=== PATIENT | male | born 1970 | race Caucasian/White ===

== ENCOUNTER 2022-03-18 05:41 | Emergency (ER) | payer OTHER ==
[2022-03-18 05:47] VITALS: O2SAT 96
[2022-03-18 06:04] VITALS: BP 154/99; PULSE 69
--- NOTE | 2022-03-18 06:12 | ERPHSYRPT ---
- History of Present Illness Time Seen by Provider: 03/18/22 06:07 Source: patient Exam Limitations: no limitations Patient Subjective Stated Complaint: after running, rt leg soreness and redness Triage Nursing Assessment: pt ran 3 miles on Thursday and rt leg became sore. Thursday ran 2 miles and rt leg is still sore, tender and noticed some redness to rt lower ext. Pt thinks it's slightly more swollen than the left lower leg. Good pedal pulses present. Pt states, "it feels like a pulled muscle and sore like a bruise". Physician History: Patient is a 51-year-old white male who was recently with improvement in the weather started to run again he has run 3 miles Thursday and 2 miles yesterday and has developed some discomfort in the anterior right leg. She also has noted some redness. He has not had any injury he was concerned he might be getting shinsplints or DVT or infection. Method of Injury: sports injury Occurred: yesterday Quality: aching Severity of Pain-Max: mild Severity of Pain-Current: mild Lower Extremities Pain: leg: right (Faint erythema overlying the right tibia distal third.) Modifying Factors: Improves With: movement Associated Symptoms: none Allergies/Adverse Reactions: No Known Drug Allergies Allergy (Verified 03/18/22 05:54) Home Medications: Smz/Tmp Ds Tablet [Bactrim Ds Tablet] 1 tab PO Q12H 03/18/22 [History] Hx Tetanus, Diphtheria Vaccination/Date Given: Yes Hx Influenza Vaccination/Date Given: No Hx Pneumococcal Vaccination/Date Given: No Immunizations Up to Date: Yes Travel Risk - International Travel Have you traveled outside of the country in past 3 weeks: No - Coronavirus Screening Are you exhibiting any of the following symptoms?: No - Vaccine Status Have you recieved a Covid-19 vaccination: Yes [employer]: Unknown - Vaccination Dates Date of 2cond Vaccination (if applicable): . Dates if Unknown: . - Review of Systems Constitutional: No Fever, No Chills Eyes: No Symptoms Ears, Nose, & Throat: No Symptoms Respiratory: No Cough, No Dyspnea Cardiac: No Chest Pain, No Edema, No Syncope Abdominal/Gastrointestinal: No Abdominal Pain, No Nausea, No Vomiting, No Diarrhea Genitourinary Symptoms: No Dysuria Musculoskeletal: No Back Pain, No Neck Pain Skin: No Rash Neurological: No Dizziness, No Focal Weakness, No Sensory Changes Psychological: No Symptoms Endocrine: No Symptoms All Other Systems: Reviewed and Negative - Past Medical History Pertinent Past Medical History: Yes Neurological History: No Pertinent History ENT History: No Pertinent History Cardiac History: Hypertension Respiratory History: Pneumonia Endocrine Medical History: No Pertinent History Musculoskeletal History: No Pertinent History GI Medical History: No Pertinent History History: No Pertinent History Psycho-Social History: No Pertinent History Male Reproductive Disorders: No Pertinent History Other Medical History: rare skin disease - Past Surgical History Past Surgical History: Yes Musculoskeletal: Other Other Surgical History: thumb surgery. laser surgery for skin disease - Social History Smoking Status: Never smoker Exposure to second hand smoke: No Drug Use: none Patient Lives Alone: No - Nursing Vital Signs Nursing Vital Signs: Initial Vital Signs Temperature 98.1 F 03/18/22 05:42 Pulse Rate 76 03/18/22 05:42 Respiratory Rate 20 03/18/22 05:42 Blood Pressure 164/97 03/18/22 05:42 O2 Sat by Pulse Oximetry 96 03/18/22 05:42 Pain Scale Pain Intensity 0 - Physical Exam General Appearance: no apparent distress Eyes, Ears, Nose, Throat Exam: normal ENT inspection Neck Exam: normal inspection, non-tender Back Exam: normal inspection, normal range of motion Hips Exam: bilateral: non-tender, normal inspection, normal range of motion Legs Exam: right leg: soft tissue tenderness, swelling, other (Erythema) Knees Exam: bilateral knee: non-tender, normal inspection, normal range of motion Ankle Exam: bilateral ankle: non-tender, normal inspection, normal range of motion Foot Exam: bilateral foot: non-tender, normal inspection, normal range of motion Neuro/Tendon Exam: normal sensation, normal motor functions, normal tendon functions Mental Status Exam: alert, oriented x 3, cooperative Skin Exam: other (Small area of erythema right anterior leg distal third) SpO2 Interpretation: normal SpO2: 96 O2 Delivery: Room Air - Course Nursing assessment & vital signs reviewed: Yes - Radiology Exams Lower Leg X-ray Interpretation: Interpreted by me, Negative Ordered Tests: Active Orders 24 hr Category Date Time Status LOWER LEG Stat Exams 03/18/22 06:04 Taken CBC Stat Lab 03/18/22 06:15 Completed CMP Stat Lab 03/18/22 06:15 Completed D-DIMER QUANTITATIVE Stat Lab 03/18/22 06:15 Completed SED RATE [Erythrocyte Sedimentation Rate] Stat Lab 03/18/22 06:15 Received Lab/Rad Data: Laboratory Result Diagrams 03/18/22 06:15 03/18/22 06:15 Laboratory Results 03/18/22 03/18/22 03/18/22 Range/Units 06:15 06:15 06:15 WBC 6.7 (4.0-10.5) K/mm3 RBC 5.15 (4.1-5.6) M/mm3 Hgb 16.9 (12.5-18.0) gm/dl Hct 50.5 H (42-50) % MCV 98.1 (78-100) fl MCH 32.8 H (26-32) pg MCHC 33.5 (32-36) g/dl RDW 13.1 (11.5-14.0) % Plt Count 242 (150-450) K/mm3 MPV 9.7 (7.5-11.0) fl D-Dimer < 215 L (215-500) ng/mL Sodium 141 (137-145) mmol/L Potassium 4.1 (3.5-5.1) mmol/L Chloride 116 H (98-107) mmol/L Carbon Dioxide 25 (22-30) mmol/L Anion Gap 4.2 L (5-15) MEQ/L BUN 22 H (9-20) mg/dL Creatinine 0.86 (0.66-1.25) mg/dL Estimated GFR > 60.0 ML/MIN Glucose 96 (74-106) mg/dL Calcium 8.9 (8.4-10.2) mg/dL Total Bilirubin 0.60 (0.2-1.3) mg/dL AST 59 (17-59) U/L ALT 41 (0-50) U/L Alkaline Phosphatase 79 (38-126) U/L Serum Total Protein 7.1 (6.3-8.2) g/dL Albumin 4.3 (3.5-5.0) g/dL - Progress Progress: unchanged - Departure Departure Disposition: Home Clinical Impression: Davison splint of right lower extremity Condition: Critical Care Time: No Referrals: SALOME MATHEWS MD [Primary Care Provider] - Follow up/PCP as directed Instructions: Davison Splints (DC), Overuse Injuries (DC) Prescriptions: Diclofenac Sodium 50 mg [Voltaren 50 mg] 50 mg PO TID 10 Days #30 cap
[2022-03-18 06:21] LABS: Hematocrit 50.5 % (42-50); Hemoglobin 16.9 gm/dl (12.5-18.0); Mean Cell Volume 98.1 fl (78-100); Mean Corpuscular Hemoglobin 32.8 pg (26-32); Mean Corpuscular Hgb Concent. 33.5 g/dl (32-36); Mean Platelet Volume 9.7 fl (7.5-11.0); Platelet Count 242 K/mm3 (150-450); Red Blood Count 5.15 M/mm3 (4.1-5.6); Red Cell Distribution Width 13.1 % (11.5-14.0); White Blood Count 6.7 K/mm3 (4.0-10.5)
[2022-03-18 06:38] LABS: ALBUMIN 4.3 g/dL (3.5-5.0); ALKALINE PHOSPHATASE 79 U/L (38-126); ANION GAP 4.2 MEQ/L (5-15); BLOOD UREA NITROGEN 22 mg/dL (9-20); CHLORIDE 116 mmol/L (98-107); Calcium 8.9 mg/dL (8.4-10.2); Carbon Dioxide 25 mmol/L (22-30); Creatinine 1 0.86 mg/dL (0.66-1.25); EST GLOMERULAR FILTRATION RATE > 60.0 ML/MIN; Glucose 96 mg/dL (74-106); Potassium 4.1 mmol/L (3.5-5.1); SGOT/AST 59 U/L (17-59); SGPT/ALT 41 U/L (0-50); SODIUM 141 mmol/L (137-145); Total Protein 7.1 g/dL (6.3-8.2)
--- NOTE | 2022-03-18 09:02 | XRAY ---
Indication: Pain, swelling, and erythema. No known injury. Comparison: None 2 view right lower leg demonstrates tiny medial malleolus tip spurring. No other bony, articular, or soft tissue abnormalities.
== END 2022-03-18 06:54 | disposition home or self-care (01) ==
LOC: ED 05:41
DX: S86.891A Other injury of other muscle(s) and tendon(s) at lower leg level, right leg, initial encounter (principal); X50.3XXA Overexertion from repetitive movements, initial encounter; Y93.02 Activity, running; M79.604 Pain in right leg; I10 Essential (primary) hypertension
CPT/HCPCS: 36415; 73590; 80053; 85027; 85379; 85652; 86140; 99284

== ENCOUNTER 2023-05-26 15:05 | Emergency (ER) | payer BC, OTHER ==
[2023-05-26 15:26] VITALS: BP 180/106; PULSE 80; O2SAT 94
[2023-05-26] MEDS ORDERED: TORAdol 30 mg Injection IV ONE (15:37)
[2023-05-26] MEDS ORDERED: solu-MEDROL 125 MG, Sterile H2O 10 ml 2 ML IV ONE ×2 (15:37)
[2023-05-26] MEDS ORDERED: solu-MEDROL ONE (15:37)
[2023-05-26] MEDS ORDERED: Sterile H2O 10 ml IJ ONE (15:37)
[2023-05-26] MEDS ORDERED: Sodium Chloride 0.9% 1000 ML 1,000 ML IV STA (15:37)
[2023-05-26] MEDS ORDERED: TORAdol 30 mg Injection ONE (15:37)
[2023-05-26] MEDS ORDERED: Sodium Chloride 0.9% 1000 ML 1,000 ML ONE (15:38)
--- NOTE | 2023-05-26 17:13 | ERPHSYRPT ---
- History of Present Illness Time Seen by Provider: 05/26/23 15:30 Source: patient Exam Limitations: no limitations Patient Subjective Stated Complaint: pt here for worsing of hes chronic skin condition, he just finished 4 weeks of antiboitcs. he states it is very painful Triage Nursing Assessment: pt has red raw scaly patches on arms,buttock. 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 Patient tends to experience excoriated/eroded and erythematous skin at the areas of the skin folds. Patient states that he had just completed a course of Bactrim for this condition. Patient states the Bactrim usually resolves his condition. However he continues to have symptoms. Patient currently has not appointment to follow-up with his sketch maker tomorrow at 7 AM. Patient is here for pain management. Patient states that a steroid he usually helps resolve or improve his symptomology. No fever. No nausea vomiting. No diaphoresis. No trauma. Patient otherwise voices no other complaints or concerns at this time.\ Portions of this note were created with voice recognition technology. There may be grammatical, spelling, punctuation or sound alike errors Timing/Duration: today Severity: moderate Modifying Factors: Improves With: nothing Associated Symptoms: denies symptoms Allergies/Adverse Reactions: No Known Drug Allergies Allergy (Verified 05/26/23 15:11) Hx Tetanus, Diphtheria Vaccination/Date Given: Yes Hx Influenza Vaccination/Date Given: No Hx Pneumococcal Vaccination/Date Given: No Immunizations Up to Date: Yes Travel Risk - International Travel Have you traveled outside of the country in past 3 weeks: No - Coronavirus Screening Are you exhibiting any of the following symptoms?: No Close contact with a COVID-19 positive Pt in past 14-21 Days: No - Vaccine Status 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 Dates if Unknown: . - Review of Systems Constitutional: No Symptoms, No Fever, No Chills Eyes: No Symptoms Ears, Nose, & Throat: No Symptoms Respiratory: No Symptoms, No Cough, No Dyspnea Cardiac: No Symptoms, No Chest Pain, No Edema, No Syncope Abdominal/Gastrointestinal: No Symptoms, No Abdominal Pain, No Nausea, No Vomiting, No Diarrhea Genitourinary Symptoms: No Symptoms, No Dysuria Musculoskeletal: No Symptoms, No Back Pain, No Neck Pain Skin: No Symptoms, No Rash Neurological: No Symptoms, No Dizziness, No Focal Weakness, No Sensory Changes Psychological: No Symptoms Endocrine: No Symptoms Hematologic/Lymphatic: No Symptoms Immunological/Allergic: No Symptoms All Other Systems: Reviewed and Negative - Past Medical History Pertinent Past Medical History: Yes Neurological History: No Pertinent History ENT History: No Pertinent History Cardiac History: Hypertension Respiratory History: Pneumonia Endocrine Medical History: No Pertinent History Musculoskeletal History: No Pertinent History GI Medical History: No Pertinent History History: No Pertinent History Psycho-Social History: No Pertinent History Male Reproductive Disorders: No Pertinent History Other Medical History: rare skin disease - Past Surgical History Past Surgical History: Yes Musculoskeletal: Other Other Surgical History: thumb surgery. laser surgery for skin disease - Social History Smoking Status: Never smoker Exposure to second hand smoke: No Drug Use: none Patient Lives Alone: No - Nursing Vital Signs Nursing Vital Signs: Initial Vital Signs Temperature 97.6 F 05/26/23 15:25 Pulse Rate 80 05/26/23 15:25 Respiratory Rate 18 05/26/23 15:25 Blood Pressure 180/106 05/26/23 15:25 O2 Sat by Pulse Oximetry 94 L 05/26/23 15:25 Pain Scale Pain Intensity 8 - Physical Exam General Appearance: no apparent distress, alert Eye Exam: PERRL/EOMI, eyes nml inspection Ears, Nose, Throat Exam: normal ENT inspection, TMs normal, pharynx normal, m oist mucous membranes Neck Exam: normal inspection, non-tender, supple, full range of motion Respiratory Exam: normal breath sounds, lungs clear, airway intact, No respiratory distress Cardiovascular Exam: regular rate/rhythm, normal heart sounds, normal peripheral pulses Gastrointestinal/Abdomen Exam: soft, normal bowel sounds, No tenderness, No mass Back Exam: normal inspection, normal range of motion, No CVA tenderness, No vertebral tenderness Extremity Exam: normal inspection, normal range of motion, pelvis stable Neurologic Exam: alert, oriented x 3, cooperative, normal mood/affect, nml cerebellar function, nml station & gait, sensation nml, No motor deficits Skin Exam: normal color, warm, dry, other (Excoriated skin at both axilla gluteal fold and groin area. No superimposed cellulitis or infection. No lymphangitis. No lymphadenopathy.), No rash Lymphatic Exam: No adenopathy SpO2 Interpretation: normal SpO2: 94 O2 Delivery: Room Air - Course Nursing assessment & vital signs reviewed: Yes Ordered Tests: Active Orders 24 hr Category Date Time Status IV Insertion STAT Care 05/26/23 15:36 Active Medication Summary Discontinued Medications Generic Name Dose Route Start Last Admin Trade Name Alvaradoq PRN Reason Stop Dose Admin Methylprednisolone Sodium 0 mg 05/26/23 15:37 05/26/23 15:45 Succinate 125 mg/ Sterile IV 05/26/23 15:38 125 mg Water 2 ml STAT ONE Administration Sodium Chloride 1,000 mls @ 999 mls/hr 05/26/23 15:37 05/26/23 15:45 Sodium Chloride 0.9% 1000 Ml IV 05/26/23 16:37 999 mls/hr .Q1H1M STA Administration Sodium Chloride Confirm 05/26/23 15:38 Sodium Chloride 0.9% 1000 Ml Administered 05/26/23 15:39 Dose 1,000 mls @ ud .ROUTE .STK-MED ONE Ketorolac Tromethamine 30 mg 05/26/23 15:37 05/26/23 15:43 Ketorolac Tromethamine 30 Mg/Ml Inj IV 05/26/23 15:38 30 mg STAT ONE Administration Ketorolac Tromethamine Confirm 05/26/23 15:37 Ketorolac Tromethamine 30 Mg/Ml Inj Administered 05/26/23 15:38 Dose 30 mg .ROUTE .STK-MED ONE Methylprednisolone Sodium Succinate Confirm 05/26/23 15:37 Methylprednis Sod Succ 125 Mg/2 Ml Vial Administered 05/26/23 15:38 Dose 125 mg .ROUTE .STK-MED ONE Sterile Water Confirm 05/26/23 15:37 Water For Injection,Sterile 10 Ml Vial Administered 05/26/23 15:38 Dose 10 ml IJ .STK-MED ONE - Progress Progress: improved Progress Note: Patient is a 53-year-old male presents to our ED for treatment of pain secondary to 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 Physical exam reveals excoriated skin bilateral axilla, gluteal cleavage and groin area. No signs of infection. Patient just completed a course of Bactrim per his sketch maker. We contacted patient's sketch maker Dr. Mccarthy who advised a dose of steroid in our ED. She will see him tomorrow morning at 7:40 AM for reevaluation. Patient received dose of steroids in our ED. We applied Xeroform gauze to the involved area. Patient states that this improved the symptomology. Pay states he is ready for discharge. He agrees to follow-up with his sketch maker tomorrow as scheduled. Patient voices no other complaints or concerns at this time. Portions of this note were created with voice recognition technology. There may be grammatical, spelling, punctuation or sound alike errors Complexity of problem addressed is low acute uncomplicated Critical care time Complexity of data reviewed and analyzed is moderate. Diagnosis made based on history and physical examination. However management was discussed with patient's sketch maker. We render treatment accordingly Risk of complication and or risk of morbidity/mortality patient management is moderate. Patient received a dose of steroid in our ED. He treated the wound locally with Xeroform gauze. Patient reassessed. He feels well. Vital stable. Time spent to discharge patient approximately 10 minutes. Plan of care established for shared decision making. Portions of this note were created with voice recognition technology. There may be grammatical, spelling, punctuation or sound alike errors 05/26/23 17:[address].: Other (Case discussed with Dr. Mccarthy) Will see patient in: office Counseled pt/family regarding: diagnosis, need for follow-up - Departure Departure Disposition: Home Clinical Impression: Viky-vkiy disease Condition: Stable Critical Care Time: No Referrals: SALOME MATHEWS MD [Primary Care Provider] - Follow up/PCP as directed Additional Instructions: Discharge/Care Plan CINDY VELOZ was seen on 05/26/23 in the Emergency Room. The patient was counseled regarding Diagnosis,Lab results, Imaging studies, need for follow up and when to return to the Emergency Room. Prescriptions given: Discharge Note I have spoken with the patient and/or caregivers. I have explained the patient's condition, diagnosis and treatment plan based on the information available to me at this time. I have answered the patient's and/or caregiver's questions and addressed any concerns. The patient and/or caregivers have as good understanding of the patient's diagnosis, condition and treatment plan as can be expected at this point. The vital signs have been stable. The patient's condition is stable and appropriate for discharge from the emergency department. The patient will pursue further outpatient evaluation with the primary care physician or other designated or consulting physician as outlined in the discharge instructions. The patient and/or caregivers are agreeable to this plan of care and follow-up instructions have been explained in detail. The patient and/or caregivers have received these instruction. The patient/and or caregivers are aware that any significant change in condition or worsening of symptoms should prompt an immediate return to this or the closest emergency department or call 911.
== END 2023-05-26 17:17 | disposition home or self-care (01) ==
LOC: ED 15:05
DX: Q82.8 Other specified congenital malformations of skin (principal); I10 Essential (primary) hypertension
CPT/HCPCS: 36000; 96374; 96375; 99283; J1885; J2930

== ENCOUNTER 2025-07-28 03:51 | Emergency (ER) | payer BC ==
[2025-07-28 04:09] VITALS: RESP 18; TEMP 97
[2025-07-28] MEDS ORDERED: CETACAINE SPRAY ONE (04:09)
[2025-07-28 04:29] VITALS: O2SAT 97
[2025-07-28] MEDS ORDERED: DECADRON 10MG INJ. ONE (04:31)
[2025-07-28] MEDS: CETACAINE SPRAY TP ONE (04:33)
[2025-07-28] MEDS: DECADRON 10MG INJ. PO ONE (04:33)
[2025-07-28] MEDS ORDERED: TORAdol 30 mg Injection ONE (04:41)
[2025-07-28] MEDS: NORCO 5/325 MG PO ONE (04:42)
[2025-07-28] MEDS ORDERED: HYDROCODONE-ACETAMIN 2.5-108/5 ML SOLUTION ONE (04:43)
[2025-07-28] MEDS: TORAdol 30 mg Injection IM ONE (04:43)
[2025-07-28] MEDS: HYDROCODONE-ACETAMIN 2.5-108/5 ML SOLUTION PO STA (04:45)
--- NOTE | 2025-07-28 04:53 | ERPHSYRPT ---
- History of Present Illness Time Seen by Provider: 07/28/25 03:52 Source: patient Exam Limitations: no limitations Patient Subjective Stated Complaint: pt states that he has had a sorethroat for the past week. pt states he went to [facility] and was swabbed. pt states that he was negative for everything. pt states that he was given steroids, z pack, and mouth wash. pt states that the swelling and pain is getting worse Triage Nursing Assessment: pt ambulates into the er; pt is axo x4; c/o sorethroat; pt states 10/10 pain to throat; redness, swelling, excudate, and blisters present to throat; no respiratory distress present; vital wnl Physician History: 55-year-old male presents to the emergency room with sore throat and swelling patient reports he is having pain upon swallowing he is able to swallow and tolerate liquids however he is having pain upon eating he was seen at outside facility tested negative for strep tested negative for mono as well as flu and got COVID and RSV patient reports she was seen yesterday 2 days prior started on steroids antibiotics she got 1 more day of Z-Jordon left he reports he is here more for pain control than anything else his throat culture has not resulted as of yet now in ED for further eval Timing/Duration: persistent ENT Location: throat Prearrival Treatment: prescription meds (Antibiotics steroids) Modifying Factors: Improves With: nothing Associated Symptoms: poor solids intake, sore throat Allergies/Adverse Reactions: acetaminophen [From Vicodin] Adverse Reaction (Verified 07/28/25 03:57) Nausea and Vomiting hydrocodone [From Vicodin] Adverse Reaction (Verified 07/28/25 03:57) Nausea and Vomiting Home Medications: Azithromycin 250 mg [Zithromax 250 MG TABLET] 250 mg PO ZPACK 07/28/25 [History] Hx Tetanus, Diphtheria Vaccination/Date Given: Yes Hx Influenza Vaccination/Date Given: No Hx Pneumococcal Vaccination/Date Given: No Travel Risk - International Travel Have you traveled outside of the country in past 3 weeks: No - Emerging Infectious Disease Are you exhibiting symptoms associated with any current EIDs: No - Review of Systems Constitutional: No Fever, No Chills Eyes: No Symptoms Ears, Nose, & Throat: No Symptoms, Throat Pain, Throat Swelling, Painful Swallowing Respiratory: No Cough, No Dyspnea Cardiac: No Chest Pain, No Edema, No Syncope Abdominal/Gastrointestinal: No Abdominal Pain, No Nausea, No Vomiting, No Diarrhea Genitourinary Symptoms: No Dysuria Musculoskeletal: No Back Pain, No Neck Pain Skin: No Rash Neurological: No Dizziness, No Focal Weakness, No Sensory Changes Psychological: No Symptoms Endocrine: No Symptoms All Other Systems: Reviewed and Negative - Past Medical History Pertinent Past Medical History: Yes Neurological History: No Pertinent History ENT History: No Pertinent History Cardiac History: Aneurysm, Hypertension Respiratory History: No Pertinent History Endocrine Medical History: No Pertinent History Musculoskeletal History: No Pertinent History GI Medical History: No Pertinent History History: No Pertinent History Psycho-Social History: No Pertinent History Male Reproductive Disorders: No Pertinent History Other Medical History: *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 laser surgery for skin disease - Social History Smoking Status: Never smoker Exposure to second hand smoke: No Drug Use: none - Social Determinants of Health Will the patient participate in the screening: Yes Do you worry about a steady place to live?: No Do you have any problems with any of the following?: No known problems In the past 12 months,have you had to go without utilities?: No Transportation Issues: No Has anyone in your support network made you feel unsafe?: No Have you or anyone in your house had to go w/o enough food: No - Nursing Vital Signs Nursing Vital Signs: Initial Vital Signs Temperature 97 F 07/28/25 03:57 Pulse Rate 81 07/28/25 03:57 Respiratory Rate 18 07/28/25 03:57 Blood Pressure 133/79 07/28/25 03:57 O2 Sat by Pulse Oximetry 99 07/28/25 03:57 Pain Scale Pain Intensity 8 - Physical Exam General Appearance: no apparent distress, alert Eye Exam: bilateral eye: PERRL, EOMI Nasal Exam: normal inspection Throat Exam: moist mucus membranes, pharynx tenderness, tonsillar exudate, tonsillar swelling Neck Exam: supple Cardiovascular/Respiratory Exam: normal breath sounds, regular rate/rhythm Abdominal Exam: non-tender, soft Neurologic Exam: alert, oriented x 3, sensation nml, No motor deficits Skin Exam: normal color, warm, dry SpO2: 97 - Course Nursing assessment & vital signs reviewed: Yes Ordered Tests: Medication Summary Discontinued Medications Generic Name Dose Route Start Last Admin Trade Name Tana PRN Reason Stop Dose Admin Hydrocodone Bitart/Acetaminophen 2 tab 07/28/25 04:40 07/28/25 04:42 Hydrocodone/Apap 5/325 1 Tab Tablet PO 07/28/25 04:41 Not Given SENT HOME W/ PATIENT ONE Hydrocodone Bitart/Acetaminophen 10 ml 07/28/25 04:43 07/28/25 04:45 Hydrocodone/Acetaminophen 5 Ml Udcup PO 07/28/25 04:44 10 ml STAT STA Administration Hydrocodone Bitart/Acetaminophen Confirm 07/28/25 04:43 Hydrocodone/Acetaminophen 5 Ml Udcup Administered 07/28/25 04:44 Dose 10 ml .ROUTE .STK-MED ONE Benzocaine/Butamben/Tetracaine HCl Confirm 07/28/25 04:09 Tetracaine/Benzocaine/Butamben 1 Walling Administered 07/28/25 04:10 Dose 1 spray .ROUTE .STK-MED ONE Benzocaine/Butamben/Tetracaine HCl 1 spray 07/28/25 04:32 07/28/25 04:33 Tetracaine/Benzocaine/Butamben 1 Walling TP 07/28/25 04:33 1 spray ONCE ONE Administration Dexamethasone Sodium Phosphate Confirm 07/28/25 04:31 Dexamethasone Sod Phosphate 10 Mg/Ml Administered 07/28/25 04:32 Dose 10 mg .ROUTE .STK-MED ONE Dexamethasone Sodium Phosphate 10 mg 07/28/25 04:32 07/28/25 04:33 Dexamethasone Sod Phosphate 10 Mg/Ml PO 07/28/25 04:33 10 mg STAT ONE Administration Ketorolac Tromethamine 15 mg 07/28/25 04:37 07/28/25 04:43 Ketorolac Tromethamine 30 Mg/Ml Inj IM 07/28/25 04:38 15 mg STAT ONE Administration Ketorolac Tromethamine Confirm 07/28/25 04:41 Ketorolac Tromethamine 30 Mg/Ml Inj Administered 07/28/25 04:42 Dose 30 mg .ROUTE .STK-MED ONE - Progress Progress Note: Patient was given steroids as well as IM shot of Toradol patient was given liquid hydrocodone to take home patient is driving himself so has not taken any opiates until he gets home so he is able to rest advised patient to finish his dose of Z-Jordon and will be started on a short course of clindamycin 07/28/25 04:51 07/28/25 04:57 Patient feels improved after the steroids patient able to tolerate p.o. intake patient does have some erythema with some exudates in the pharynx but the airway is patent there is good airway entry lung sounds are clear bilaterally patient is afebrile otherwise well-hydrated patient advised to finish his azithromycin course I advised him that I have sent the clindamycin prescription but we are going to hold off until his throat culture returns as we are unsure as to the cause versus sensitivities. Advised patient if he is not improving to consider starting the clindamycin at that time she is able to tolerate p.o. intake advised close return precautions patient is breathing comfortably . to skip his prednisone dose 07/28/25 05:01 07/28/25 05:03 - Departure Departure Disposition: Home Clinical Impression: Pharyngitis Qualifiers: Pharyngitis/tonsillitis etiology: unspecified etiology Qualified Code(s): J02.9 - Acute pharyngitis, unspecified Condition: Stable Critical Care Time: No Referrals: NIRALI ANDREA MD [Primary Care Provider, INTERNAL MEDICINE] - Follow up/PCP as directed JOSEPH INGRAM [NON-STAFF PHY W/O PRIVILEGES, UNKNOWN] - Follow up/PCP as directed LORI ARREAGA [NON-STAFF PHY W/O PRIVILEGES, UNKNOWN] - Follow up/PCP as directed TREY MURPHY MD [NON-STAFF PHY W/O PRIVILEGES, OTOLARYNGOLOGY] - Follow up/PCP as directed Instructions: Sore Throat, Adult (DC), Strep Throat (DC), Viral Pharyngitis (DC) Prescriptions: Clindamycin Palmitate HCl [Clindamycin Pediatric] 300 mg PO Q8H #600 ml
[2025-07-28 05:11] VITALS: BP 149/84; PULSE 74
== END 2025-07-28 05:17 | disposition home or self-care (01) ==
LOC: ED 03:51
DX: J02.9 Acute pharyngitis, unspecified (principal); I10 Essential (primary) hypertension; Z79.899 Other long term (current) drug therapy